=== PATIENT | female | born 1960 | race Caucasian/White ===

== ENCOUNTER 2016-07-07 17:43 | Emergency (ER) | payer MEDICARE, OTHER ==
[~2016-07-07] VITALS: Ht 152.4 cm; Wt 60.0 kg
[~2016-07-07 17:43] MED LIST: ARIC10TA PO; FLUO20TA20 PO; LEVO100T75 PO; OS-CTAB3 PO; SIMV40TA PO; STOO100C PO; VITA-13 PO; ZOFR4TAB3 SL
[2016-07-07 17:49] VITALS: BP 122/71; PULSE 72; RESP 16; TEMP 97.7; O2SAT 96
[2016-07-07] MEDS ORDERED: SODIUM CHLOR 0.9% 1000 ML INJ 1,000 ML IV ONE (18:00)
--- NOTE | 2016-07-07 18:02 | PD ---
HPI Chief Complaint: Cold / Flu Symptoms Time Seen by Provider: 17:58 Travel History International Travel<30 days: No Contact w/Intl Traveler<30days: No Traveled to known affect area: No History of Present Illness HPI Patient is a 56-year-old female with history of Down syndrome, presents to emergency room for evaluation of possible pneumonia. As per patient's mother, patient has been having dry cough for the past 3 days. Reports no fevers or chills, reports that patient has been having more frequent coughing fits. Patient's mother was just seen in the emergency room for similar symptoms and was diagnosed with multilobar pneumonia, mom concerned that patient may have pneumonia. Patient unable to provide history of present illness at this time. PFSH Past Medical History Cancer: No Cardiovascular Problems: No High Cholesterol: Yes Developmental Delay: Yes (DOWNS SYNDROME) Diabetes: No Endocrine: No Genitourinary: No Hepatitis: No Hiatal Hernia: No Hypertension: Yes Immune Disorder: No Musculoskeletal: Yes (RIGHT KNEE PAIN) Neurologic: Yes (TRISOMY 21 (DOWN SYNDROME)) Psychiatric: Yes (DEPRESSIVE AND OBSESSIVE/COMPULSIVE DISORDER) Reproductive: No Respiratory: No Thyroid Disease: Yes (HYPOTHYROID) Menopausal: Yes Past Surgical History Abdominal Surgery: No AICD: No Cardiac Surgery: No Ear Surgery: No Endocrine Surgery: No Eye Surgery: No Genitourinary Surgery: No Gynecologic Surgery: No Joint Replacement: No Oral Surgery: No Pacemaker: No Thoracic Surgery: No Social History Alcohol Use: Yes (RARELY HAS A BEER) Tobacco Use: No Substance Use: No Allergies-Medications (Allergen,Severity, Reaction): Coded Allergies: No Known Allergies (Verified , 11/09/15) Reported Meds & Prescriptions Reported Meds & Active Scripts Active Reported Simvastatin 40 Mg Tab 40 Mg PO HS Colace (Docusate Sodium) 100 Mg Cap 100 Mg PO BID Donepezil 10 Mg Tab 10 Mg PO HS Fluoxetine (Fluoxetine HCl) 20 Mg Cap 20 Mg PO DAILY Levothyroxine (Levothyroxine Sodium) 100 Mcg Tab 100 Mcg PO DAILY Review of Systems General / Constitutional: No: Fever Eyes: No: Visual changes HENT: No: Headaches Cardiovascular: No: Chest Pain or Discomfort Respiratory: Positive: Cough, No: Shortness of Breath Gastrointestinal: No: Abdominal Pain Genitourinary: No: Dysuria Musculoskeletal: No: Pain Skin: No Rash Neurologic: No: Weakness Psychiatric: No: Depression Endocrine: No: Polydipsia Hematologic/Lymphatic: No: Easy Bruising Physical Exam Narrative GENERAL: Well-nourished, well-developed patient. SKIN: Warm and dry. HEAD: Normocephalic. EYES: No scleral icterus. No injection or drainage. NECK: Supple, trachea midline. No JVD or lymphadenopathy. CARDIOVASCULAR: Regular rate and rhythm without murmurs, gallops, or rubs. RESPIRATORY: Breath sounds equal bilaterally. No accessory muscle use. GASTROINTESTINAL: Abdomen soft, non-tender, nondistended. MUSCULOSKELETAL: No cyanosis, or edema. BACK: Nontender without obvious deformity. No CVA tenderness. Data Data Last Documented VS Vital Signs Date Time Temp Pulse Resp B/P Pulse Ox O2 Delivery O2 Flow Rate FiO2 07/07/16 18:43 98 Room Air 07/07/16 17:49 97.7 72 16 122/71 Orders Complete Blood Count With Diff (07/07/16 17:59) Comprehensive Metabolic Panel (07/07/16 17:59) Influenzae A/B Antigen (07/07/16 17:59) Urinalysis - C+S If Indicated (07/07/16 17:59) Blood Culture (07/07/16 17:59) Chest, Single Ap (07/07/16 17:59) Iv Access Insert/Monitor (07/07/16 17:59) Oximetry (07/07/16 17:59) Sodium Chlor 0.9% 1000 Ml Inj (Ns 1000 M (07/07/16 18:00) Ceftriaxone Inj (Rocephin Inj) (07/07/16 19:15) Azithromycin Inj (Zithromax Inj) (07/07/16 19:15) Labs Laboratory Tests Test 07/07/16 07/07/16 19:00 19:10 White Blood Count 6.3 TH/MM3 Red Blood Count 3.92 MIL/MM3 Hemoglobin 13.2 GM/DL Hematocrit 39.3 % Mean Corpuscular Volume 100.2 FL Mean Corpuscular Hemoglobin 33.7 PG Mean Corpuscular Hemoglobin 33.7 % Concent Red Cell Distribution Width 13.1 % Platelet Count 254 TH/MM3 Mean Platelet Volume 8.9 FL Neutrophils (%) (Auto) 65.4 % Lymphocytes (%) (Auto) 26.2 % Monocytes (%) (Auto) 6.0 % Eosinophils (%) (Auto) 1.5 % Basophils (%) (Auto) 0.9 % Neutrophils # (Auto) 4.1 TH/MM3 Lymphocytes # (Auto) 1.7 TH/MM3 Monocytes # (Auto) 0.4 TH/MM3 Eosinophils # (Auto) 0.1 TH/MM3 Basophils # (Auto) 0.1 TH/MM3 CBC Comment DIFF FINAL Differential Comment Sodium Level 140 MEQ/L Potassium Level 4.1 MEQ/L Chloride Level 102 MEQ/L Carbon Dioxide Level 30.5 MEQ/L Anion Gap 8 MEQ/L Blood Urea Nitrogen 15 MG/DL Creatinine 1.12 MG/DL Estimat Glomerular Filtration 50 ML/MIN Rate Random Glucose 90 MG/DL Calcium Level 8.6 MG/DL Total Bilirubin 0.4 MG/DL Aspartate Amino Transf 13 U/L (AST/SGOT) Alanine Aminotransferase 11 U/L (ALT/SGPT) Alkaline Phosphatase 66 U/L Total Protein 7.5 GM/DL Albumin 2.3 GM/DL Urine Color YELLOW Urine Turbidity HAZY Urine pH 6.0 Urine Specific [place] 1.020 Urine Protein NEG mg/dL Urine Glucose (UA) NEG mg/dL Urine Ketones TRACE mg/dL Urine Occult Blood NEG Urine Nitrite NEG Urine Bilirubin NEG Urine Urobilinogen LESS THAN 2.0 MG/DL Urine Leukocyte Esterase NEG Urine RBC LESS THAN 1 /hpf Urine WBC LESS THAN 1 /hpf Urine Squamous Epithelial 6 /hpf Cells Urine Mucus FEW /lpf Microscopic Urinalysis Comment CULT NOT INDICATED MDM Medical Decision Making Medical Screen Exam Complete: Yes Emergency Medical Condition: Yes Interpretation(s) Vital Signs Date Time Temp Pulse Resp B/P Pulse Ox O2 Delivery O2 Flow Rate FiO2 07/07/16 17:49 97.7 72 16 122/71 96 Room Air Differential Diagnosis influenza, pneumonia, viral syndrome Narrative Course Patient is a 56-year-old female with history of Down syndrome, presents to emergency room for evaluation of possible pneumonia. Patient's mother was seen in emergency and today was diagnosed with multilobar pneumonia, reports concern as patient has been coughing for the past 3 days.CBC & BMP Diagram 07/07/16 19:00 X-ray of the chest with mild bibasilar pneumonia, patient with a white count of 6.3, plan to discharge patient home with prescription for antibiotics. Labs patient follow-up with her primary care doctor and follow up with cultures from today. Will have patient return to emergency if symptoms progress or worsen Diagnosis Primary Impression: Pneumonia Qualified Code: J18.9 - Pneumonia of both lower lobes due to infectious organism Patient Instructions: General Instructions Additional Instructions: Please follow-up with your primary care doctor and 1-2 days Take all antibiotics as prescribed Please follow-up with cultures from today Return to emergency with symptoms worsen or progress Med/Other Pt SpecificInfo: Prescription(s) given Scripts Azithromycin 500 Mg [id number] Mg PO DAILY #5 TAB Ref 0 Prov:Rita Cook DO 07/07/16 Disposition: 01 DISCHARGE HOME Condition: Stable Rita Cook DO Jul 07, 2016 18:02
[2016-07-07 18:43] VITALS: O2SAT 98
--- NOTE | 2016-07-07 18:54 | RADRPT ---
EXAM DATE/TIME: 07/07/2016 18:23 [facility] COMPARISON: No previous studies available for comparison. INDICATIONS : Cough and cold symptoms. MEDICAL HISTORY : Hypertension. Hypothyroidism. Down's syndrome SURGICAL HISTORY : None. ENCOUNTER: Initial ACUITY: 1 day PAIN SCORE: 0/10 LOCATION: Bilateral chest FINDINGS: Patchy infiltrate seen of both bases. No denser confluent consolidation. No pleural effusion. No pneu mothorax. Heart size within normal limits. There is a mild S-shaped thoracolumbar curvature. CONCLUSION: Mild bibasilar pneumonia. Jalil Gamboa MD on July 07, 2016 at 18:52 Board Certified Radiologist. This report was verified electronically.
[2016-07-07] MEDS ORDERED: SIMV40TA PO (19:14)
[2016-07-07] MEDS ORDERED: DONE10TA7 PO (19:14)
[2016-07-07] MEDS ORDERED: OSCA200T PO (19:14)
[2016-07-07] MEDS ORDERED: CHOL100025 CHEW (19:14)
[2016-07-07] MEDS ORDERED: LEVO100T5 PO (19:14)
[2016-07-07] MEDS ORDERED: COLA100C3 PO (19:14)
[2016-07-07] MEDS ORDERED: FLUO20CA4 PO (19:14)
[2016-07-07 19:15] LABS: AUTOMATED NEUTROPHIL # 4.1 TH/MM3 (1.8-7.7); BASOPHIL # 0.1 TH/MM3 (0-0.2); BASOPHIL % 0.9 % (0.0-2.0); EOSINOPHIL # 0.1 TH/MM3 (0-0.4); EOSINOPHIL % 1.5 % (0.0-4.0); HEMATOCRIT 39.3 % (35.0-46.0); HEMO FLAGS DIFF FINAL; LYMPH % 26.2 % (9.0-44.0); LYMPHOCYTE # 1.7 TH/MM3 (1.0-4.8); MEAN CELL VOLUME 100.2 FL (80.0-100.0); MEAN CORPUSCULAR HEMOGLOBIN 33.7 PG (27.0-34.0); MEAN CORPUSCULAR HGB CONC 33.7 % (32.0-36.0); NEUT % 65.4 % (16.0-70.0); PLATELET COUNT 254 TH/MM3 (150-450); RED BLOOD COUNT 3.92 MIL/MM3 (4.00-5.30); RED CELL DISTRIBUTION WIDTH 13.1 % (11.6-17.2); WHITE BLOOD COUNT 6.3 TH/MM3 (4.0-11.0)
[2016-07-07] MEDS ORDERED: AZITHROMYCIN INJ 500 MG in SODIUM CHLOR 0.9% 250 ML INJ 250 ML IV SCH (19:15)
[2016-07-07] MEDS ORDERED: cefTRIAXone INJ 1,000 MG in SODIUM CHLORIDE 0.9% INJ 100 ML IV ONE (19:15)
[2016-07-07 19:26] LABS: BLOOD, URINE NEG (NEG); COMMENT (UR) CULT NOT INDICATED; CULTURE IF INDICATED CULT NOT INDICATED; GLUCOSE,URINE NEG (NEG); KETONE, URINE TRACE mg/dL (NEG); MUCUS URINE FEW /lpf (OCC); NITRITE,URINE NEG (NEG); SQUAMOUS EPITHELIAL CELL URINE 6 /hpf (0-5); URINE COLOR YELLOW (YELLW/STRAW)
[2016-07-07 19:47] LABS: ANION GAP 8 MEQ/L (5-15); AST (GOT) 13 U/L (15-37); BICARBONATE 30.5 MEQ/L (21.0-32.0); BLOOD UREA NITROGEN 15 MG/DL (7-18); CHLORIDE 102 MEQ/L (98-107); GLOMERULAR FILTRATION RATE 50 ML/MIN (>89); POTASSIUM 4.1 MEQ/L (3.5-5.1); SODIUM (NA) 140 MEQ/L (136-145)
[2016-07-07 19:50] LABS: ALKALINE PHOSPHATASE 66 U/L (45-117); ALT (GPT) 11 U/L (10-53); TOTAL BILIRUBIN ADULT 0.4 MG/DL (0.2-1.0)
[2016-07-07] MEDS ORDERED: AZIT500T2 PO (20:06)
[2016-07-07 21:30] VITALS: BP 115/73
== END 2016-07-07 22:17 | disposition home or self-care (01) ==
LOC: NEPC 17:43
DX: J18.9 Pneumonia, unspecified organism (principal); Q90.9 Down syndrome, unspecified; E78.00 Pure hypercholesterolemia, unspecified; I10 Essential (primary) hypertension
CPT/HCPCS: 71010; 80053; 81001; 85025; 87040; 87804; 96365; 96367; 99283; J0456; J0696; J7030; J7050